=== PATIENT | male | born 1990 | race African-American/Black ===

== ENCOUNTER 2016-12-06 16:03 | Emergency (ER) | payer BC ==
[2016-12-06 16:11] VITALS: BP 142/74; PULSE 73; TEMP 97.8; BMI 27.7
[2016-12-06] MEDS ORDERED: predniSONE 20 MG TABLET (UD) ONE (17:26)
[2016-12-06] MEDS ORDERED: predniSONE 20 MG TABLET (UD) PO ONE (17:26)
[2016-12-06] MEDS ORDERED: ALBUTEROL SO4 2.5/IPRATROPIUM 0.5 INH SOL 3 ML VIAL.NEB. NEB ONE ×2 (17:26→17:27)
--- NOTE | 2016-12-06 17:28 | PDOC ---
History of Present Illness - General Chief Complaint: Respiratory Stated Complaint: RESPIRATORY Time Seen by Provider: 12/06/16 17:14 History Source: Patient Exam Limitations: No Limitations - History of Present Illness Initial Comments: 12/06/16 18:00 My chief complaint: Knee nose, sore throat, Cough with chest discomfort when coughing and wheezing 2 days History of present illness: Patient is a 26-year-old male with a history of asthma here today complaining of a dry cough with chest discomfort with deep breathing 2 days. Patient also reports that he noticed that he has been wheezing getting worse 2 days. Patient was hospitalized once in 2011 due to his asthma did not get intubated. Patient also reports that he had a fever yesterday. Patient also reports having slight sore throat and runny nose 2 days. He denies any difficulty swallowing. Patient used his albuterol pump once with no relief. Patient also reports feeling as if he cannot take a deep breath with inspiration. Denies any nausea vomiting or diarrhea. He is speaking in complete sentences without any shortness of breath noted. 12/06/16 18:06 12/07/16 09:05 Timing/Duration: getting worse (over 2 days ) Severity: mild Associated Symptoms: reports: chest pain (when coughing,), cough, fever/chills ( yesterday ), other (wheezing x 2 days ) Past History - Past Medical History Allergies/Adverse Reactions: Allergies Allergy/AdvReac Type Severity Reaction Status Date / Time No Known Allergies Allergy Verified 12/06/16 16:07 Home Medications: Ambulatory Orders Albuterol 0.083% Nebulizer Deborah [Ventolin 0.083% Nebulizer Soln -] 1 neb NEB Q4H PRN #1 vial 12/06/16 Albuterol Sulfate Inhaler - [Ventolin HFA Inhaler -] 2 inh PO Q4H PRN #1 inh Azithromycin [Zithromax 250mg Tablets -] 250 mg PO UTDICT #6 tab 12/06/16 Fluticasone/Salmeterol [Advair Hfa 115-21 Mcg Inhaler] 1 inh PO BID #1 inhaler MDD 2 12/06/16 Prednisone [Deltasone -] 20 mg PO BID #8 tablet 12/06/16 Asthma: Yes - Immunization History Immunization Up to Date: Yes (no known ill contacts) - Psycho/Social/Smoking Cessation Hx Anxiety: No Suicidal Ideation: No Smoking Status: No Smoking History: Never smoked Have you smoked in the past 12 months: No Number of Cigarettes Smoked Daily: 0 Information on smoking cessation initiated: No Hx Alcohol Use: No Drug/Substance Use Hx: No Substance Use Type: Alcohol Review of Systems - Review of Systems Able to Perform ROS?: Yes Constitutional: Yes: Fever (yesterday ) HEENTM: Yes: Nose Congestion, Throat Pain Respiratory: Yes: Cough, Shortness of Breath (with deep inspiration only ), Wheezing (x 2 days ). No: SOB with Exertion, SOB at Rest, Stridor Cardiac (ROS): No: Symptoms Reported ABD/GI: No: Symptoms Reported : No: Symptoms Reported Musculoskeletal: No: Symptoms Reported Integumentary: No: Symptoms Reported Neurological: No: Symptoms reported *Physical Exam - Vital Signs Last Vital Signs Temp Pulse Resp BP Pulse Ox 97.8 F 73 18 142/74 96 12/06/16 16:08 12/06/16 16:08 12/06/16 16:08 12/06/16 16:08 12/06/16 16:08 - Physical Exam General Appearance: Yes: Appropriately Dressed HEENT: positive: TMs Normal, Pharyngeal Erythema, Tonsillar Erythema (with no uvular deviation ), Nasal Congestion. negative: Tonsillar Exudate, Sinus Tenderness Neck: negative: Lymphadenopathy (R), Lymphadenopathy (L) Respiratory/Chest: positive: Wheezing (expiratory diffuse b/l ), Other (lungs post neb CTA b/L ). negative: Respiratory Distress, Accessory Muscle Use, Labored Respiration, Rapid RR Cardiovascular: positive: Regular Rhythm, Regular Rate, S1, S2 Integumentary: positive: Normal Color Neurologic: positive: Alert, Normal Response, Responsive Medical Decision Making - Medical Decision Making 12/06/16 18:06 Patient is a 26-year-old male with a history of asthma here today complaining of a dry cough with chest discomfort with deep breathing 2 days. Patient also reports that he noticed that he has been wheezing getting worse 2 days. Patient was hospitalized once in 2011 due to his asthma did not get intubated. Patient also reports that he had a fever yesterday. Patient also reports having slight sore throat and runny nose 2 days. She denies any difficulty swallowing. Patient used his albuterol pump once with no relief. Patient also reports feeling as if he cannot take a deep breath with inspiration. Denies any nausea vomiting or diarrhea. He is speaking in complete sentences without any shortness of breath noted. asthma exacerbation nasal congestion tonsillitis r/o Strep PLAN: throat C & S negative duoneb now prednisone 60 mg po now than 20 mg bid for following 4 days azithromycin 250 mg 2 tabs today then 1 tab daily for following 4 days Albuterol nebulizers 0.083% every 4 hours as needed for shortness of breath or wheezing Ventolin HF a pump 2 puffs every 4 hours when necessary for shortness of breath or wheezing advair 115/21 mcg one inhale bid 12/07/16 09:06 12/07/16 09:07 *DC/Admit/Observation/Transfer Diagnosis at time of Disposition: Asthma exacerbation - Discharge Dispostion Disposition: HOME Condition at time of disposition: Stable - Prescriptions Prescriptions: Fluticasone/Salmeterol [Advair Hfa 115-21 Mcg Inhaler] 1 inh PO BID #1 inhaler MDD 2 Prednisone [Deltasone -] 20 mg PO BID #8 tablet Albuterol 0.083% Nebulizer Deborah [Ventolin 0.083% Nebulizer Soln -] 1 neb NEB Q4H PRN #1 vial PRN Reason: Short Of Breath/Wheezing Albuterol Sulfate Inhaler - [Ventolin HFA Inhaler -] 2 inh PO Q4H PRN #1 inh PRN Reason: Short Of Breath/Wheezing Azithromycin [Zithromax 250mg Tablets -] 250 mg PO UTDICT #6 tab - Patient Instructions Additional Instructions: Return to emergency room if symptoms worsen any difficulties breathing or swallowing \Follow-up with primary care provider within the next 2 days Drink a lot of fluids and rest Patient voiced understanding of discharge instructions and all questions were answered
== END 2016-12-06 18:44 | disposition home or self-care (01) ==
LOC: JERFT 16:03
PROC: 3E0F7GC Introduction of Other Therapeutic Substance into Respiratory Tract, Via Natural or Artificial Opening (ICD-10-PCS; principal; 2016-12-06)
DX: J45.901 Unspecified asthma with (acute) exacerbation (principal)
CPT/HCPCS: 87070; 87430; 99281-25